=== PATIENT | female | born 1985 | race Two or more races ===

== ENCOUNTER 2021-06-21 12:59 | Emergency (ER) | payer BC ==
[2021-06-21 13:55] LABS: Absolute Lymphocytes (CBC) 0.7 K/uL (0.7-4.9); Basophils % 0.3 % (0-1.3); Hematocrit 37.3 % (36.0-45.0); Lymphocytes % 17.5 % (15.3-44.8); MPV 7.9 fL (7.6-11.3)
[2021-06-21 14:01] LABS: Protime INR 1.08
[2021-06-21 14:18] LABS: ALT/SGPT 36 U/L (12-78); AST/SGOT 38 U/L (15-37); Albumin 3.4 g/dL (3.4-5.0); BUN Blood Urea Nitrogen 7 mg/dL (7-18); Bicarbonate 25 mmol/L (21-32); Bilirubin Direct < 0.1 mg/dL (0-0.2); Bilirubin Total 0.3 mg/dL (0.2-1.0); Glucose Level 102 mg/dL (74-106); Potassium 3.5 mmol/L (3.5-5.1); Protein, Total 7.3 g/dL (6.4-8.2); Sodium Level 140 mmol/L (136-145)
--- NOTE | 2021-06-21 14:27 | RAD REPORT ---
EXAM DESCRIPTION: RAD - Chest Single View - 06/21/2021 2:14 pm CLINICAL HISTORY: COVID +;Chest pain;Cough Chest pain. COMPARISON: No comparisons FINDINGS: Portable technique limits examination quality. Mild bilateral pulmonary opacities are present likely representing viral infection. The heart is norm al in size. No displaced fractures.
[2021-06-21] MEDS ORDERED: NA CHLORIDE 0.9% 1,000 ML ONE (14:39)
[2021-06-21 15:25] LABS: Alkaline Phosphatase 82 U/L (45-117); C-Reactive Protein 9.74 mg/L (<3.00); Troponin (Emerg Dept Use Only) < 0.02 ng/mL (0.0-0.045)
--- NOTE | 2021-06-21 16:07 | RAD REPORT ---
EXAM DESCRIPTION: CT - Chest For Pe Angio - 06/21/2021 3:49 pm CLINICAL HISTORY: Chest pain. COVID, worsening symptoms COMPARISON: No comparisons TECHNIQUE: CT angiogram of the pulmonary arteries was performed with MIP. All CT scans are performed using dose optimization technique as appropriate and may include automated exposure control or mA/KV adjustment according to patient size. FINDINGS: No evidence of pulmonary thromboembolism. No acute aortic finding demonstrated. Mild bilateral ground-glass lung opacities with atelectasis in both posterior lung bases. No significant pericardial or pleural fluid. No concerning bony finding. IMPRESSION: No evidence of pulmonary thromboembolism. Bilateral ground-glass lung opacities likely representing COVID infection.
--- NOTE | 2021-06-21 16:40 | EDPHYS ---
Physician Documentation [facility] Name: Adriana De Jesus Age: 35 yrs Sex: Female : 1985 Arrival Date: 06/21/2021 Time: 13:01 Bed 13 Private MD: ED Physician Bryce Chavez HPI: 06/21 13:41 This 35 yrs old Female presents to ER via EMS with complaints of Covid +. rn 13:41 This 35 yrs old Female presents to ER via EMS with complaints of Covid +. rn 13:41 The patient or guardian reports cough, that is intermittent, described as moderate, rn with no sputum. Onset: The symptoms/episode began/occurred 1 week(s) ago. Severity of symptoms: At their worst the symptoms were moderate, in the emergency department the symptoms are unchanged. Modifying factors: The symptoms are alleviated by nothing, the symptoms are aggravated by nothing. Associated signs and symptoms: Pertinent positives: fever, rhinorrhea, sore throat, Pertinent negatives: diarrhea. The patient has not experienced similar symptoms in the past. The patient has been recently seen by a physician:. Patient reports approximately 1 week of feeling ill, tested positive for Covid 3 days ago, states felt like was getting better but then today the fatigue and chills came back. Subjective fever present. Reports cough and mild shortness of breath. No vomiting or diarrhea. Reports feels like just does not have energy.. 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 - Social history:: Smoking status: Patient denies any tobacco usage or history of. - Family history:: not pertinent. - Hospitalizations: : No recent hospitalization is reported. ROS: 13:41 Constitutional: Positive for fever and chills Eyes: Negative for injury, pain, redness, rn and discharge, ENT: Negative for injury Neck: Negative for injury, pain, and swelling, Cardiovascular: Negative for palpitations, and edema, Respiratory: Negative for wheezing, and pleuritic chest pain Abdomen/GI: Negative for abdominal pain, nausea, vomiting, diarrhea, and constipation, Back: Negative for injury and pain, : Negative for injury, bleeding, discharge, and swelling, MS/Extremity: Negative for injury and deformity, Skin: Negative for injury, rash, and discoloration, Neuro: Negative for numbness, tingling, and seizure. Exam: 13:41 Constitutional: This is a well developed, well nourished patient who is awake, alert, rn and in no acute distress. Head/Face: Normocephalic, atraumatic. Eyes: Periorbital areas with no swelling, redness, or edema. Cardiovascular: Tachycardic, regular. No pulse deficits Respiratory: Mild tachypnea, no retractions Abdomen/GI: Soft, non-tender Skin: Warm, dry MS/ Extremity: Pulses equal, no cyanosis. Neuro: Awake and alert, GCS 15 Vital Signs: 13:04 BP 101 / 64; Pulse 103; Resp 22; Temp 100(O); Pulse Ox 98% on R/A; Weight 70.31 kg; [facility] Height 5 ft. 4 in. (162.56 cm); 14:00 BP 102 / 72; Pulse 92; Resp 18; Pulse Ox 97% ; 5 15:42 BP 102 / 76; Pulse 92; Resp 20; Temp 99.8(O); Pulse Ox 98% ; 5 16:55 BP 109 / 64; Pulse 87; Resp 23; Pulse Ox 98% ; [facility] 13:04 Body Mass Index 26.61 (70.31 kg, 162.56 cm) [facility] MDM: 13:02 Patient medically screened. rn 16:38 Differential Diagnosis: Upper Respiratory Infection Viral Syndrome Pneumonia Other rn Covid. Data reviewed: vital signs, nurses notes, lab test result(s), radiologic studies, CT scan, plain films, and as a result, I will discharge patient. Data interpreted: bus monitor: rate is 92 beats/min, rhythm is normal sinus rhythm, regular, with no ectopy, Interpretation: normal rate, normal rhythm, Pulse oximetry: on room air is 97 %. Interpretation: normal. Test interpretation: by ED physician or midlevel provider: plain radiologic studies, Chest x-ray with mild bilateral opacities consistent with Covid. Counseling: I had a detailed discussion with the patient and/or guardian regarding: the historical points, exam findings, and any diagnostic results supporting the discharge/admit diagnosis, lab results, radiology results, the need for outpatient follow up, to return to the emergency department if symptoms worsen or persist or if there are any questions or concerns that arise at home. Special discussion: I discussed with the patient/guardian in detail that at this point there is no indication for admission to the hospital. It is understood, however, that if the symptoms persist or worsen the patient needs to return immediately for re-evaluation. ED course: Patient without oxygen requirement. CT chest negative for PE. Mild Covid pneumonia on chest x-ray and CT. Already started prednisone and Zithromax by PCP yesterday will DC home with return precautions. Does not meet criteria for Regeneron infusion.. 06/21 13:03 Order name: BMP 06/21 13:03 Order name: Blood Culture Adult (2) 06/21 13:03 Order name: C-Reactive Protein 06/21 13:03 Order name: CBC with Diff 06/21 13:03 Order name: Ferritin 06/21 13:03 Order name: LFT's; Complete Time: 16:18 06/21 13:03 Order name: Lactate; Complete Time: 14:07 06/21 13:03 Order name: PT-INR; Complete Time: 14:07 06/21 13:03 Order name: Procalcitonin; Complete Time: 15:13 06/21 13:03 Order name: Ptt, Activated; Complete Time: 14:07 06/21 13:03 Order name: Troponin (emerg Dept Use Only); Complete Time: 16:18 06/21 13:03 Order name: Urine Microscopic Only 06/21 13:03 Order name: Basic Metabolic Panel; Complete Time: 16:18 EDMI 06/21 13:03 Order name: Blood Culture [facility] 06/21 13:03 Order name: CXR XRAY; Complete Time: 15:13 06/21 13:03 Order name: EKG; Complete Time: 13:04 06/21 13:03 Order name: Cardiac monitoring; Complete Time: 13:40 06/21 13:03 Order name: Droplet/Contact Precautions; Complete Time: 13:39 06/21 13:03 Order name: EKG - Nurse/Tech; Complete Time: 14:01 06/21 13:03 Order name: IV Start; Complete Time: 13:39 06/21 13:03 Order name: Labs collected and sent; Complete Time: 13:39 rn 06/21 13:03 Order name: O2 Per Protocol; Complete Time: 13:39 rn 06/21 13:03 Order name: C-Reactive Protein; Complete Time: 16:18 EDMI 06/21 13:03 Order name: CBC with Automated Diff; Complete Time: 14:07 EDMI 06/21 13:03 Order name: Ferritin; Complete Time: 16:18 EDMI 06/21 13:39 Order name: CT Chest For PE Angio; Complete Time: 16:18 rn 06/21 16:54 Order name: Urine Dipstick-Ancillary [facility] 06/21 16:56 Order name: Urine --Ancillary (enter results) [facility] 06/21 13:03 Order name: O2 Sat Monitoring; Complete Time: 13:39 rn 06/21 13:03 Order name: Urine Dipstick-Ancillary (obtain specimen); Complete Time: 16:58 rn Administered Medications: 15:45 Drug: NS 0.9% 1000 ml Route: IV; Rate: 1000 ml; Site: right wrist; 5 16:54 Drug: SOLU-Medrol (methylPrednisoLONE) 125 mg Route: IVP; Site: right wrist; 5 Disposition Summary: 06/21/21 16:39 Discharge Ordered Location: Home rn Problem: an ongoing problem rn Symptoms: have improved rn Condition: Stable rn Diagnosis - Pneumonia due to SARS-associated coronavirus rn - Dehydration rn Followup: rn - With: Private Physician - When: As needed - Reason: Recheck today's complaints, Re-evaluation by your physician Discharge Instructions: - Discharge Summary Sheet rn - Dehydration, Adult rn - COVID-19 rn - COVID-19 Frequently Asked Questions rn - 10 Things You Can Do to Manage Your COVID-19 Symptoms at Home - [facility] rn Forms: - Medication Reconciliation Form rn - Thank You Letter rn - 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 rn 5
--- NOTE | 2021-06-21 16:40 | ER ---
Nurse's Notes [facility] Name: Adriana De Jesus Age: 35 yrs Sex: Female : 1985 Arrival Date: 06/21/2021 Time: 13:01 Bed 13 Private MD: Diagnosis: Pneumonia due to SARS-associated coronavirus;Dehydration Presentation: 06/21 13:04 Chief complaint: EMS states: pt tested positive for Covid on Saturday, today felt weak, sm5 SOB, and felt like she was going to pass out. Coronavirus screen: Vaccine status: Patient reports being unvaccinated. Client reports previous positive COVID test result. Date of collection: June 18, 2021. Ebola Screen: Patient negative for fever greater than or equal to 101.5 degrees Fahrenheit, and additional compatible Ebola Virus Disease symptoms Patient denies exposure to infectious person. Patient denies travel to an Ebola-affected area in the 21 days before illness onset. Initial Sepsis Screen: Does the patient meet any 2 criteria? HR > 90 bpm. No. Patient's initial sepsis screen is negative. Does the patient have a suspected source of infection? Yes: Other: covid. Risk Assessment: Do you want to hurt yourself or someone else? Patient reports no desire to harm self or others. Onset of symptoms was June 21, 2021. 13:04 Method Of Arrival: EMS: [place] [id number] 13:04 Acuity: SEAN 3 sm5 Triage Assessment: 13:09 General: Appears ill, Behavior is calm, cooperative. Pain: Denies pain. Neuro: Level of [facility] Consciousness is awake, alert, obeys commands, Oriented to person, place, time, situation. Cardiovascular: No deficits noted. Respiratory: Reports shortness of breath cough that is Airway is patent Trachea midline. 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 - Social history:: Smoking status: Patient denies any tobacco usage or history of. - Family history:: not pertinent. - Hospitalizations: : No recent hospitalization is reported. Screenin:09 Abuse screen: Denies threats or abuse. Denies injuries from another. Nutritional [facility] screening: No deficits noted. Tuberculosis screening: No symptoms or risk factors identified. Fall Risk IV access (20 points). Total Curtis Fall Scale indicates No Risk (0-24 pts). Vital Signs: 13:04 BP 101 / 64; Pulse 103; Resp 22; Temp 100(O); Pulse Ox 98% on R/A; Weight 70.31 kg; 5 Height 5 ft. 4 in. (162.56 cm); 14:00 BP 102 / 72; Pulse 92; Resp 18; Pulse Ox 97% ; 5 15:42 BP 102 / 76; Pulse 92; Resp 20; Temp 99.8(O); Pulse Ox 98% ; 5 16:55 BP 109 / 64; Pulse 87; Resp 23; Pulse Ox 98% ; 5 13:04 Body Mass Index 26.61 (70.31 kg, 162.56 cm) [facility] ED Course: 13:01 Patient arrived in ED. ds1 13:02 Bryce Chavez MD is Attending Physician. rn 13:04 Rabia Valdez RN is Primary Nurse. [facility] 13:09 Triage completed. [facility] 13:36 Inserted saline lock: 20 gauge in right antecubital area, using aseptic technique. tp1 ,using aseptic technique. unable to flush Blood collected. IV discontinued, bleeding controlled, Pressure dressing applied. 13:37 Arm band placed on left wrist. 5 13:39 Patient has correct armband on for positive identification. Bed in low position. Call [facility] light in reach. 13:58 Initial lab(s) drawn, by ED staff, sent to lab. EKG done, by ED staff, reviewed by venancio Chavez MD. Inserted saline lock: 20 gauge in left forearm, using aseptic technique. 13:59 Door closed. Noise minimized. Lights dimmed. campus monitor on. Pulse ox on. NIBP on. [facility] 14:00 CBC with Automated Diff Sent. [facility] 14:00 Ferritin Sent. [facility] 14:00 C-Reactive Protein Sent. [facility] 14:00 Blood Culture Sent. [facility] 14:00 Basic Metabolic Panel Sent. [facility] 14:00 BMP Sent. [facility] 14:01 Blood Culture Adult (2) Sent. [facility] 14:01 C-Reactive Protein Sent. [facility] 14:01 CBC with Diff Sent. [facility] 14:01 Ferritin Sent. [facility] 14:01 LFT's Sent. 5 14:01 PT-INR Sent. 5 14:01 Procalcitonin Sent. 5 14:01 Ptt, Activated Sent. [facility] 14:01 Troponin (emerg Dept Use Only) Sent. 5 14:14 CXR XRAY In Process Unspecified. EDMS 15:19 Inserted saline lock: 22 gauge in right wrist, using aseptic technique. 2 15:[address] CT Chest For PE Angio In Process Unspecified. EDMS 16:55 No provider procedures requiring assistance completed. 5 16:56 IV discontinued, intact, No redness/swelling at site. 5 16:57 Urine collected: clean catch specimen, clear. [facility] 16:58 Urine Microscopic Only Sent. 5 16:58 Urine --Ancillary (enter results) Sent. [facility] Administered Medications: 15:45 Drug: NS 0.9% 1000 ml Route: IV; Rate: 1000 ml; Site: right wrist; 5 16:54 Drug: SOLU-Medrol (methylPrednisoLONE) 125 mg Route: IVP; Site: right wrist; 5 Outcome: 16:39 Discharge ordered by . rn 16:55 Discharged to home ambulatory. 5 16:55 Condition: stable 16:55 Discharge instructions given to patient, Instructed on discharge instructions, Demonstrated understanding of instructions. 16:58 Patient left the ED. [facility] Signatures: Dispatcher [employer] [facility] Kelley Brooks ds1 Bryce Chavez MD MD rn Martinez, Maria Marta Plaza RN RN sl2 Tamy Saab tp1 Rabia Valdez RN RN [facility]
[2021-06-21] MEDS ORDERED: METHYLPREDNISOLONE 125 MG INJ ONE (16:45)
[2021-06-21 16:55] LABS: Urine Blood Negative (Negative); Urine Glucose Negative (Negative); Urine Protein Negative (Negative); Urine pH 5.5 (5.0-7.0)
[2021-06-21 17:21] VITALS: TEMP 99.8; O2SAT 98
[2021-06-21 17:25] VITALS: BP 109/64
[2021-06-21 17:29] LABS: Urine Bacteria <20 /HPF (<20); Urine RBC <5 /HPF (NONE SEEN)
== END 2021-06-21 16:58 | disposition home or self-care (01) ==
LOC: ER 12:59
DX: U07.1 COVID-19 (principal); J12.82 Pneumonia due to coronavirus disease 2019; E86.0 Dehydration; E78.00 Pure hypercholesterolemia, unspecified
CPT/HCPCS: 93005; 87040 ×2; 85025; 80048; 36415; 81025; 85610; 80076; 83605; 85730; 84484; 82728; 84145; 86140; 71275; 71045; 96374; 99285; Q9967; J7030; J2930; 81003; 81015